=== PATIENT | female | born 1980 | race Caucasian/White ===

== ENCOUNTER 2020-11-07 21:17 | Inpatient (IN) | payer MEDICAID, OTHER ==
[~2020-11-07] VITALS: Ht 152.4 cm; Wt 93.5 kg
--- NOTE | 2020-11-07 21:44 | PHYS DOC ---
Past Medical History Past Medical History: No Pertinent History Past Surgical History: Other Additional Past Surgical Histo: (R) ANKLE REPAIR Smoking Status: Current Every Day Smoker Alcohol Use: None Drug Use: None Social History Narrative: "NOT NO MORE." General Adult EDM: Chief Complaint: HAND PROBLEM HPI: HPI: Patient is a 40 year old female who presents with 2 weeks ago tripped and went to catch herself and put her arm out in front of her and scraped up her right posterior hand at the ulnar side on the palm just below the fifth finger causing a quarter sized area of collection of purulent fluid under the skin with what looks like a puncture wound. Patient also has on the left hand large blistered- looking area to the ulnar aspect of the anterior hand below the fourth and fifth finger causing 1+ swelling to the whole hand with tingling to the fourth finger. This looks to be a large blistered area with purulent fluid collection under. There is also a darker pink color to the hand due to infection. Patient rates her pain a 10 out of 10. She states is hard for her to use her hands or bend her fingers due to the pain and swelling. Patient only history is smoking. Review of Systems: Review of Systems: Constitutional: Denies fever or chills. [] Eyes: Denies change in visual acuity. [] HENT: Denies nasal congestion or sore throat. [] Respiratory: Denies cough or shortness of breath. [] Cardiovascular: Denies chest pain or edema. [] GI: Denies abdominal pain, nausea, vomiting, bloody stools or diarrhea. [] : Denies dysuria. [] Musculoskeletal: Denies back pain or joint pain. + Bilateral hand pain [] Integument: Denies rash. +Bilateral hand infected wounds [] Neurologic: Denies headache, focal weakness or sensory changes. [] Endocrine: Denies polyuria or polydipsia. [] Lymphatic: Denies swollen glands. [] Psychiatric: Denies depression or anxiety. [] Heart Score: Risk Factors: Risk Factors: DM, Current or recent (<one month) smoker, HTN, HLP, family history of CAD, obesity. Risk Scores: Score 0 - 3: 2.5% MACE over next 6 weeks - Discharge Home Score 4 - 6: 20.3% MACE over next 6 weeks - Admit for Clinical Observation Score 7 - 10: 72.7% MACE over next 6 weeks - Early Invasive Strategies Allergies: Allergies: Allergies Coded Allergies Type Severity Reaction Last Updated Verified No Known Drug Allergies 03/19/15 No Physical Exam: PE: Constitutional: Well developed, well nourished, no acute distress, non-toxic appearance. [] HENT: Normocephalic, atraumatic, bilateral external ears normal, oropharynx mo ist, no oral exudates, nose normal. [] Eyes: PERRLA, EOMI, conjunctiva normal, no discharge. [] Neck: Normal range of motion, no tenderness, supple, no stridor. [] Cardiovascular:Heart rate regular rhythm, no murmur [] Lungs & Thorax: Bilateral breath sounds clear to auscultation [] Abdomen: Bowel sounds normal, soft, no tenderness, no masses, no pulsatile masses. [] Skin: Warm, dry, no erythema, no rash. Left hand darker pink in color with anterior ulnar side blister type wound that is large with purulent fluid underneath. Right hand palm at ulnar side large blisterlike area with purulent fluid buildup underneath. [] Back: No tenderness, no CVA tenderness. [] Extremities: Lateral hand tenderness, no cyanosis, no clubbing, ROM intact, left hand 1+ edema. [] Neurologic: Alert and oriented X 3, normal motor function, normal sensory function, no focal deficits noted. [] Psychologic: Affect normal, judgement normal, mood normal. [] Current Patient Data: Vital Signs: Vital Signs Date Time Temp Pulse Resp B/P (MAP) Pulse Ox O2 Delivery O2 Flow Rate FiO2 11/07/20 21:28 98.1 99 16 129/69 (89) 98 Room Air 98.1 EKG: EKG: [] Radiology/Procedures: Radiology/Procedures: [] Impression: [facility] [address] [place] [address] IMAGING REPORT Signed PATIENT: KELIN LINKCOUNT: [id number] : 1980 LOCATION: ER AGE: 40 SEX: F EXAM STATUS: REG ER ORD. PHYSICIAN: HEBER LUNDY APRN REASON: fall, infected wounds PROCEDURE: HAND BILAT 3V XR HAND 3 VIEWS DATE: 11/07/2020 9:58 PM INDICATION: Reason: fall, infected wounds / Spl. Instructions: / History: COMPARISON: None. FINDINGS: Right: There is no evidence of acute fracture or dislocation. No osseous erosi ons. The joint spaces are normal. Left: There is no evidence of acute fracture or dislocation. No osseous erosions. The joint spaces are normal. IMPRESSION: No acute fracture. No osseous erosions. Electronically signed by: Ajay Villegas MD (11/07/2020 10:17 PM) RUST DICTATED and SIGNED BY: AJAY VILLEGAS MD DATE: 11/07/20 [id number] 0 Course & Med Decision Making: Course & Med Decision Making Pertinent Labs and Imaging studies reviewed. (See chart for details) See HPI. Alert and oriented x4. Speaks in full complete sentences. Ambulatory to steady gait. Radial pulses strong present. Cap refill less than 2 seconds. Skin other well is pink warm and dry. Full range of motion of wrists bilaterally. No deformity or laxity to any joints or extremities. Patient denies fever, numbness, coolness of the extremities, skin color change. She states she has not been seen for this incident or her wounds. Patient states th at her tetanus is up-to-date and was less than 5 years ago. Blood work is unremarkable. Patient is in a lot of pain. I am more concerned about the left hand wound because of the swelling to the fourth and fifth finger and she does not have full range of motion of those fingers due to swelling and pain. She states there is some tingling and numbness starting in those fingers also. I cleaned that large left hand dorsal hand wound with beta hexedine. It is draining purulent fluid. Radial pulse strong present. Cap refill jose miguel less than 2 seconds. She will be started on vancomycin and Zosyn. I&D Location: Right palmar aspect the hand distal to the fifth finger Anesthesia: 1% lidocaine Scalpel size: 20g needle Skin: White with some pink around the area Drainage: Ear purulent fluid drainage Packing: None Patient tolerated the procedure well with no complications. The area was prepped and draped in usual sterile fashion. Area was cleaned with chloehexidine prior to procedure. Return for signs and symptoms of infection education given. Patient to return in 48 hours for wound recheck. [] Dragon Disclaimer: Dragon Disclaimer: This electronic medical record was generated, in whole or in part, using a voice recognition dictation system. Departure Departure Impression: Primary Impression: Wound infection Additional Impressions: Cocaine abuse Marijuana abuse Disposition: ADMITTED INPT THIS HOSP Admitting Physician: ALINA Condition: STABLE Referrals: EMRE HAMILTON MD (PCP) HEBER LUNDY REFERENCE ASSISTANT Nov 07, 2020 21:44
[2020-11-07] MEDS ORDERED: HYDROcodone/APAP 5/325MG 1 TAB TABLET PO ONE (21:45)
[2020-11-07] MEDS ORDERED: LIDOCAINE 1% Multi-Dose 20 ML VIAL. INJ ONE (21:45)
[2020-11-07 21:56] LABS: BASO # 0.1 x10^3/uL (0.0-0.2); BASO % 1 % (0-3); EOS # 0.2 x10^3/uL (0.0-0.7); EOS % 2 % (0-3); HEMATOCRIT 37.8 % (36.0-47.0); HEMOGLOBIN 12.2 g/dL (12.0-15.5); LYMPH # 2.3 x10^3/uL (1.0-4.8); LYMPH % 22 % (24-48); MEAN CORPUSCULAR HEMOGLOBIN 28 pg (25-35); MEAN CORPUSCULAR HGB CONC 32 g/dL (31-37); MEAN CORPUSCULAR VOLUME 87 fL (79-100); MONO # 0.5 x10^3/uL (0.0-1.1); MONO % 5 % (0-9); NEUT # 7.4 x10^3/uL (1.8-7.7); NEUT % 71 % (31-73); PLATELET COUNT 319 x10^3/uL (140-400); RED BLOOD COUNT 4.34 x10^6/uL (3.50-5.40); WHITE BLOOD COUNT 10.5 x10^3/uL (4.0-11.0)
[2020-11-07 22:16] LABS: ALBUMIN 2.7 g/dL (3.4-5.0); ALBUMIN/GLOBULIN RATIO 0.5 (1.0-1.7); CREATININE 0.7 mg/dL (0.6-1.0); GFR 91.8; TOTAL BILIRUBIN 0.1 mg/dL (0.2-1.0); TOTAL PROTEIN 7.8 g/dL (6.4-8.2)
--- NOTE | 2020-11-07 22:28 | RAD ---
XR HAND 3 VIEWS DATE: 11/07/2020 9:58 PM INDICATION: Reason: fall, infected wounds / Spl. Instructions: / History: COMPARISON: None. FINDINGS: Right: There is no evidence of acute fracture or dislocation. No osseous erosions. The joint spaces a re normal. Left: There is no evidence of acute fracture or dislocation. No osseous erosions. The joint spaces ar e normal. IMPRESSION: No acute fracture. No osseous erosions. Electronically signed by: Jean Paul Villegas MD (11/07/2020 10:17 PM) JOHN
[2020-11-07 23:36] LABS: AMPHETAMINE/METHAMPHETAMINE NEG (NEG); BARBITURATES NEG (NEG); BENZODIAZEPINES NEG (NEG); CANNABINOIDS POS (NEG); COCAINE POS (NEG); METHADONE NEG (NEG); OPIATES NEG (NEG); PHENCYCLIDINE NEG (NEG)
[2020-11-07] MEDS ORDERED: SULF1TAB24 PO (23:40)
[2020-11-07] MEDS ORDERED: MUPI22OI2 TP (23:41)
[2020-11-08] MEDS ORDERED: IV NORMAL SALINE 1000ML BAG 1,000 ML IV ONE (00:15)
[2020-11-08] MEDS ORDERED: ONDANSETRON PF 4 MG/2 ML VIAL. IV PRN (00:15)
[2020-11-08] MEDS ORDERED: PIPERACILLIN/TAZOBACTAM 3.375 GM in IV NORMAL SALINE 50ML 50 ML IV ONE (00:15)
[2020-11-08] MEDS ORDERED: fentaNYL PF VIAL 100 MCG/2 ML VIAL IV PRN (00:15)
[2020-11-08] MEDS ORDERED: VANCOMYCIN PER PHARMACY MC PRN (00:15)
[2020-11-08] MEDS ORDERED: VANCOMYCIN 2 GM in IV NORMAL SALINE 500ML BAG 500 ML IV ONE (00:30)
[2020-11-08 02:00] VITALS: BP 128/80
--- NOTE | 2020-11-08 02:11 | NUR ---
Pharmacy Vancomycin Dosing Note S:Consulted to monitor and dose vancomycin started 11/08/20. O:KELIN LINK is a 40 year old F with WOUND INFECTION . Height: 5 feet, 0 inches Weight: 86.0 kg [place] Body Weight: 45.50 Adjusted Body Weight: 61.70 Dosing Weight: Actual Other Antibiotics: ZOSYN 3.375GM IV X1 IN ER (11/08) LABS: Last BUN: 8 Last Creatinine: 0.7 Creatinine Clearance: 101 mL/min Last WBC: 10.5 Last Procalcitonin: Tmax (past 24 hours): Microbiology: I/O: Drug Levels: Last level: on at Last dose given at Vancomycin Dosing: Loading Dose: 2000 mg x1 11/08/20 0140 Dosing Weight: Actual Target Trough: 10-20 A: Based on: Actual Wt and CrCl P: 1. 11/08/20 0930 Vancomycin 1250 mg IV q8h 2. Follow up Trough level on 11/09/20 at 0100 3. Pharmacy will continue to monitor, follow and adjust therapy as needed. PAYTON CRANE RPH, 11/08/20210 Signed: 11/08/20 at 0213 by PAYTON CRANE RPH PHA
[2020-11-08 07:25] VITALS: BP 131/70
--- NOTE | 2020-11-08 07:59 | PDOC ---
Infectious Disease Note Vital Sign Vital Signs Vital Signs Date Time Temp Pulse Resp B/P (MAP) Pulse Ox O2 Delivery O2 Flow Rate FiO2 11/08/20 07:25 98.4 78 18 131/70 (90) 98 Room Air 98.4 Labs Lab Laboratory Tests Test 11/07/20 21:46 11/07/20 23:23 White Blood Count 10.5 x10^3/uL (4.0-11.0) Red Blood Count 4.34 x10^6/uL (3.50-5.40) Hemoglobin 12.2 g/dL (12.0-15.5) Hematocrit 37.8 % (36.0-47.0) Mean Corpuscular Volume 87 fL (79-100) Mean Corpuscular Hemoglobin 28 pg (25-35) Mean Corpuscular Hemoglobin Concent 32 g/dL (31-37) Red Cell Distribution Width 16.0 % (11.5-14.5) Platelet Count 319 x10^3/uL (140-400) Neutrophils (%) (Auto) 71 % (31-73) Lymphocytes (%) (Auto) 22 % (24-48) Monocytes (%) (Auto) 5 % (0-9) Eosinophils (%) (Auto) 2 % (0-3) Basophils (%) (Auto) 1 % (0-3) Neutrophils # (Auto) 7.4 x10^3/uL (1.8-7.7) Lymphocytes # (Auto) 2.3 x10^3/uL (1.0-4.8) Monocytes # (Auto) 0.5 x10^3/uL (0.0-1.1) Eosinophils # (Auto) 0.2 x10^3/uL (0.0-0.7) Basophils # (Auto) 0.1 x10^3/uL (0.0-0.2) Sodium Level 133 mmol/L (136-145) Potassium Level 4.0 mmol/L (3.5-5.1) Chloride Level 103 mmol/L (98-107) Carbon Dioxide Level 22 mmol/L (21-32) Anion Gap 8 (6-14) Blood Urea Nitrogen 8 mg/dL (7-20) Creatinine 0.7 mg/dL (0.6-1.0) Estimated GFR (Cockcroft-Gault) 91.8 BUN/Creatinine Ratio 11 (6-20) Glucose Level 122 mg/dL (70-99) Calcium Level 9.0 mg/dL (8.5-10.1) Total Bilirubin 0.1 mg/dL (0.2-1.0) Aspartate Amino Transf (AST/SGOT) 14 U/L (15-37) Alanine Aminotransferase (ALT/SGPT) 24 U/L (14-59) Alkaline Phosphatase 66 U/L (46-116) Total Protein 7.8 g/dL (6.4-8.2) Albumin 2.7 g/dL (3.4-5.0) Albumin/Globulin Ratio 0.5 (1.0-1.7) Urine Opiates Screen Neg (NEG) Urine Methadone Screen Neg (NEG) Urine Barbiturates Neg (NEG) Urine Phencyclidine Screen Neg (NEG) Urine Amphetamine/Methamphetamine Neg (NEG) Urine Benzodiazepines Screen Neg (NEG) Urine Cocaine Screen Pos (NEG) Urine Cannabinoids Screen Pos (NEG) Urine Ethyl Alcohol Neg (NEG) Objective Assessment Bilat hand wounds - states tetanus shot 3 years ago Lumbar scabbed area Substance abuse Tobacco abuse Obesity Plan Plan of Care Cont zosyn D/c Vanc Add po Zyvox Await Ortho eval Monitor progress - if worsens consider antifungal F/u labs and cults local wound care D/w nursing Thank you # [id number] TARA SHERMAN MD Nov 08, 2020 07:59
[2020-11-08] MEDS: LINEZOLID 600 MG TABLET PO SCH ×2 (08:10→20:49)
--- NOTE | 2020-11-08 08:23 | CONS ---
DATE OF CONSULTATION: 11/08/2020 LOCATION: The patient is in room 412. REQUESTING PHYSICIAN: Brandon Pena MD REASON FOR CONSULTATION: Hand wound. HISTORY OF PRESENT ILLNESS: The patient is a 40-year-old female with history of previous right ankle repair, states that she has difficulty getting around as she states she has some crippled on her right side. About 2 weeks ago, she states she lost her balance, fell down on some outstretched hands, injuring the left fifth dorsal aspect of her hand and also the right fifth plantar aspect of her hand. She said initially she had some blood blisters there. She had pain and over the next 2 weeks they have not gotten any better and she is having some increasing pain. She has been taking ibuprofen and Tylenol intermittently. She denied any fever, chills or sweats and she has not taken any antibiotics. No headaches, no sore throat, no cough. No dysuria, frequency, urgency and denies any diarrhea. PAST SURGICAL HISTORY: Positive for previous ankle pain and repair. REVIEW OF SYSTEMS: Otherwise negative except for what is mentioned above. ALLERGIES: LISTED TUBERCULIN PPD. SOCIAL HISTORY: She is a smoker. Also has dogs. FAMILY HISTORY: Noncontributory. CURRENT MEDICATIONS: Include a dose of Zosyn, IV vancomycin, fentanyl, hydrocodone, Zofran. PHYSICAL EXAMINATION: VITAL SIGNS: She is afebrile. Temperature 98.4, pulse 78, respirations 18, blood pressure 131/70, satting 98% on room air. CONSTITUTIONAL: She is lying in bed. She is cooperative. She is in no acute distress. HEENT: Pupils equal and reactive. Oral cavity, she has dentures. NECK: Supple. Good range of motion. LUNGS: Clear to auscultation bilaterally. HEART: S1, S2. ABDOMEN: Obese, soft, nontender, nondistended with positive bowel sounds. SKIN: Warm to touch without generalized signs of rash. In her lower lumbosacral area, she has multiple scabbed areas. No signs of any infection. No blisters or bullae. On her left hand on the dorsal aspect and the medial aspect, she has some drying blistered area and on the dorsal aspect of her fifth finger, she has dried blood, blister type on the right palm on the palmar side of the fifth finger. She has a callus-like lesion that had some blister-like material underneath it. NEUROLOGIC: She is nonfocal. Moves all extremities. Answered questions appropriately. Affect was appropriate. LABORATORY VALUES: White count 10.5, hemoglobin 12.2, platelets 319, neutrophils 71. There is no sed rate. Creatinine is 0.7, glucose 122. Drug screen was positive for cocaine and marijuana. X-ray of her bilateral hands; no evidence of any fractures or erosions. IMPRESSION: 1. Bilateral hand wounds. States her tetanus shot was 3 years ago. 2. Lumbar scabbed area. 3. Substance abuse, positive COVID and cannabinoids. 4. Tobacco abuse. 5. Obesity. RECOMMENDATIONS: We will continue the Zosyn as she fell down on the outside area on concrete. Discontinue the vancomycin, given high dose. She does not look septic and likely have positive blood cultures, but we will start Zyvox. Await orthopedic evaluation. Monitor her progress. If she worsens, consider antifungal. We will follow up labs and cultures. Continue local wound care. Thank you for allowing me to participate in the patient's care. If you have any questions, please do not hesitate to contact me. TARA SHERMAN MD DR: KRISTINA/issac JOB#: [id number] / [id number] COSMO
[2020-11-08] MEDS ORDERED: VANCOMYCIN 1.25 GM in IV NORMAL SALINE 250ML 250 ML IV SCH (09:30)
[2020-11-08 10:36] VITALS: BP 129/67
[2020-11-08] MEDS: PIPERACILLIN/TAZOBACTAM 3.375 GM in IV NORMAL SALINE 50ML 50 ML IV SCH ×2 (12:14→17:56)
[2020-11-08 14:32] VITALS: BP 120/83
--- NOTE | 2020-11-08 16:26 | PDOC2 ---
CONSULT Date of Consult Date of Consult DATE: 11/08/20 TIME: 16:25 Reason for Consult Reason for Consult: Bilateral hand wounds Identification/Chief Complaint Chief Complaint Bilateral hand wounds Source Source: Chart review, Patient History of Present Illness Reason for Visit: 40-year-old left-handed woman with hand problems for about 2 weeks. 2 weeks ago tripped and went to catch herself and put her arm out in front of her and scraped up her right posterior hand at the ulnar side on the palm just below the fifth finger causing a quarter sized area of collection of purulent fluid under the skin with what looks like a puncture wound. Patient also has on the left hand large blistered-looking area to the ulnar aspect of the anterior hand below the fourth and fifth finger causing 1+ swelling to the whole hand with tingling to the fourth finger. This looks to be a large blistered area with purulent fluid collection under. There is also a darker pink color to the hand due to infection. Patient rates her pain a 10 out of 10. She states is hard for her to use her hands or bend her fingers due to the pain and swelling. Patient only history is smoking. Past Surgical History Past Surgical History: Tubal Ligation Family History Family History: Cancer Social History 1 pack per day ALCOHOL: social Drugs: Cocaine, Marijuana Current Problem List Problem List Problems Medical Problems: (1) Cocaine abuse Status: Acute (2) Marijuana abuse Status: Acute (3) Wound infection Status: Acute Current Medications Current Medications Current Medications Lidocaine HCl (Lidocaine 1% 20ml Vial) 20 ml 1X ONCE INJ Last administered on 11/07/20at 23:49; Start 11/07/20 at 21:45; Stop 11/07/20 at 21:46; Status DC Acetaminophen/ Hydrocodone Bitart (Lortab 5/325) 1 tab 1X ONCE PO Last administered on 11/07/20at 21:47; Start 11/07/20 at 21:45; Stop 11/07/20 at 21:46; Status DC Ondansetron HCl (Zofran) 4 mg PRN Q8HRS PRN IV NAUSEA/VOMITING; Start 11/08/20 at 00:15; Stop 11/09/20 at 00:14 Fentanyl Citrate (Fentanyl 2ml Vial) 50 mcg PRN Q2HR PRN IV PAIN Last administered on 11/08/20at 08:10; Start 11/08/20 at 00:15; Stop 11/09/20 at 00:14 Vancomycin HCl (Vanco Per Pharmacy) 1 each PRN DAILY PRN MC SEE COMMENTS Last administered on 11/08/20at 02:10; Start 11/08/20 at 00:15; Stop 11/08/20 at 08:00; Status DC Piperacillin Sod/ Tazobactam Sod 3.375 gm/Sodium Chloride 50 ml @ 100 mls/hr 1X ONCE IV Last administered on 11/08/20at 00:15; Start 11/08/20 at 00:15; Stop 11/08/20 at 00:44; Status DC Sodium Chloride 1,000 ml @ 1,000 mls/hr 1X ONCE IV Last administered on 11/08/20at 00:37; Start 11/08/20 at 00:15; Stop 11/08/20 at 01:14; Status DC Vancomycin HCl 2 gm/Sodium Chloride 500 ml @ 250 mls/hr 1X ONCE IV Last administered on 11/08/20at 02:30; Start 11/08/20 at 00:30; Stop 11/08/20 at 02:29; Status DC Vancomycin HCl 1.25 gm/Sodium Chloride 250 ml @ 167 mls/hr Q8H IV ; Start 11/08/20 at 09:30; Stop 11/08/20 at 08:00; Status DC Vancomycin HCl (Vancomycin Trough Level) 1 each 1X ONCE MC ; Start 11/09/20 at 01:00; Stop 11/09/20 at 01:01; Status Cancel Linezolid (Zyvox) 600 mg BID PO Last administered on 11/08/20at 08:10; Start 11/08/20 at 09:00 Piperacillin Sod/ Tazobactam Sod 3.375 gm/Sodium Chloride 50 ml @ 100 mls/hr Q6HRS IV Last administered on 11/08/20at 12:14; Start 11/08/20 at 12:00 Lactobacillus Rhamnosus (Culturelle) 1 cap BID PO ; Start 11/08/20 at 21:00 Active Scripts Active Allergies Allergies: Coded Allergies: tuberculin, purified protein deriva (Verified Allergy, Intermediate, 11/08/20) ROS Review of System Constitutional: Denies fever or chills. Eyes: Denies change in visual acuity. HENT: Denies nasal congestion or sore throat. Respiratory: Denies cough or shortness of breath. Cardiovascular: Denies chest pain or edema. GI: Denies abdominal pain, nausea, vomiting, bloody stools or diarrhea. : Denies dysuria. Musculoskeletal: Denies back pain or joint pain. + Bilateral hand pain Integument: Denies rash. +Bilateral hand infected wounds Neurologic: Denies headache, focal weakness or sensory changes. Endocrine: Denies polyuria or polydipsia. Lymphatic: Denies swollen glands. Psychiatric: Denies depression or anxiety. Physical Exam General: Alert, Cooperative HEENT: Atraumatic Lungs: Normal air movement Heart: Regular rate Abdomen: Soft Extremities: Other (The left hand has a large area of dorsal hand abrasion and superficial eschar. There is a resolving area of blisters/bullae, with some underlying fluid, but no active infection. This likely would respond with limited debridement at the bedside by wound care and superficial skin care only. There does not seem to be any deep tendon bone joint or tissue involvement. On the right hand there is a callus and more of a punctate type lesion at the palmar aspect of the small finger metacarpophalangeal joint. There is no apparent septic joint or joint involvement. There is no flexor tenosynovitis. This appears to be superficial, somewhat dark in color and looks like it is already spontaneously drained. I do not palpate any focal abscess or fluid cavi ty to incise.) Vitals VITALS Vital Signs Date Time Temp Pulse Resp B/P (MAP) Pulse Ox O2 Delivery O2 Flow Rate FiO2 11/08/20 14:32 98.0 78 18 120/83 (95) 97 Room Air 98.0 Labs Labs Laboratory Tests Test 11/07/20 21:46 11/07/20 23:23 11/08/20 14:01 White Blood Count 10.5 x10^3/uL (4.0-11.0) Red Blood Count 4.34 x10^6/uL (3.50-5.40) Hemoglobin 12.2 g/dL (12.0-15.5) Hematocrit 37.8 % (36.0-47.0) Mean Corpuscular Volume 87 fL (79-100) Mean Corpuscular Hemoglobin 28 pg (25-35) Mean Corpuscular Hemoglobin Concent 32 g/dL (31-37) Red Cell Distribution Width 16.0 % (11.5-14.5) Platelet Count 319 x10^3/uL (140-400) Neutrophils (%) (Auto) 71 % (31-73) Lymphocytes (%) (Auto) 22 % (24-48) Monocytes (%) (Auto) 5 % (0-9) Eosinophils (%) (Auto) 2 % (0-3) Basophils (%) (Auto) 1 % (0-3) Neutrophils # (Auto) 7.4 x10^3/uL (1.8-7.7) Lymphocytes # (Auto) 2.3 x10^3/uL (1.0-4.8) Monocytes # (Auto) 0.5 x10^3/uL (0.0-1.1) Eosinophils # (Auto) 0.2 x10^3/uL (0.0-0.7) Basophils # (Auto) 0.1 x10^3/uL (0.0-0.2) Sodium Level 133 mmol/L (136-145) Potassium Level 4.0 mmol/L (3.5-5.1) Chloride Level 103 mmol/L (98-107) Carbon Dioxide Level 22 mmol/L (21-32) Anion Gap 8 (6-14) Blood Urea Nitrogen 8 mg/dL (7-20) Creatinine 0.7 mg/dL (0.6-1.0) Estimated GFR (Cockcroft-Gault) 91.8 BUN/Creatinine Ratio 11 (6-20) Glucose Level 122 mg/dL (70-99) Calcium Level 9.0 mg/dL (8.5-10.1) Total Bilirubin 0.1 mg/dL (0.2-1.0) Aspartate Amino Transf (AST/SGOT) 14 U/L (15-37) Alanine Aminotransferase (ALT/SGPT) 24 U/L (14-59) Alkaline Phosphatase 66 U/L (46-116) Total Protein 7.8 g/dL (6.4-8.2) Albumin 2.7 g/dL (3.4-5.0) Albumin/Globulin Ratio 0.5 (1.0-1.7) Urine Opiates Screen Neg (NEG) Urine Methadone Screen Neg (NEG) Urine Barbiturates Neg (NEG) Urine Phencyclidine Screen Neg (NEG) Urine Amphetamine/Methamphetamine Neg (NEG) Urine Benzodiazepines Screen Neg (NEG) Urine Cocaine Screen Pos (NEG) Urine Cannabinoids Screen Pos (NEG) Urine Ethyl Alcohol Neg (NEG) Lactic Acid Level 1.1 mmol/L (0.4-2.0) Laboratory Tests Test 11/07/20 21:46 11/07/20 23:23 11/08/20 14:01 White Blood Count 10.5 x10^3/uL (4.0-11.0) Red Blood Count 4.34 x10^6/uL (3.50-5.40) Hemoglobin 12.2 g/dL (12.0-15.5) Hematocrit 37.8 % (36.0-47.0) Mean Corpuscular Volume 87 fL (79-100) Mean Corpuscular Hemoglobin 28 pg (25-35) Mean Corpuscular Hemoglobin Concent 32 g/dL (31-37) Red Cell Distribution Width 16.0 % (11.5-14.5) Platelet Count 319 x10^3/uL (140-400) Neutrophils (%) (Auto) 71 % (31-73) Lymphocytes (%) (Auto) 22 % (24-48) Monocytes (%) (Auto) 5 % (0-9) Eosinophils (%) (Auto) 2 % (0-3) Basophils (%) (Auto) 1 % (0-3) Neutrophils # (Auto) 7.4 x10^3/uL (1.8-7.7) Lymphocytes # (Auto) 2.3 x10^3/uL (1.0-4.8) Monocytes # (Auto) 0.5 x10^3/uL (0.0-1.1) Eosinophils # (Auto) 0.2 x10^3/uL (0.0-0.7) Basophils # (Auto) 0.1 x10^3/uL (0.0-0.2) Sodium Level 133 mmol/L (136-145) Potassium Level 4.0 mmol/L (3.5-5.1) Chloride Level 103 mmol/L (98-107) Carbon Dioxide Level 22 mmol/L (21-32) Anion Gap 8 (6-14) Blood Urea Nitrogen 8 mg/dL (7-20) Creatinine 0.7 mg/dL (0.6-1.0) Estimated GFR (Cockcroft-Gault) 91.8 BUN/Creatinine Ratio 11 (6-20) Glucose Level 122 mg/dL (70-99) Calcium Level 9.0 mg/dL (8.5-10.1) Total Bilirubin 0.1 mg/dL (0.2-1.0) Aspartate Amino Transf (AST/SGOT) 14 U/L (15-37) Alanine Aminotransferase (ALT/SGPT) 24 U/L (14-59) Alkaline Phosphatase 66 U/L (46-116) Total Protein 7.8 g/dL (6.4-8.2) Albumin 2.7 g/dL (3.4-5.0) Albumin/Globulin Ratio 0.5 (1.0-1.7) Urine Opiates Screen Neg (NEG) Urine Methadone Screen Neg (NEG) Urine Barbiturates Neg (NEG) Urine Phencyclidine Screen Neg (NEG) Urine Amphetamine/Methamphetamine Neg (NEG) Urine Benzodiazepines Screen Neg (NEG) Urine Cocaine Screen Pos (NEG) Urine Cannabinoids Screen Pos (NEG) Urine Ethyl Alcohol Neg (NEG) Lactic Acid Level 1.1 mmol/L (0.4-2.0) Images Images Report reviewed, images independently reviewed. [facility] [address] [place], [place] [id number] IMAGING REPORT Signed PATIENT: KELIN LINK ACCOUNT: [id number] : 1980 LOCATION: ER AGE: 40 SEX: F EXAM STATUS: REG ER ORD. PHYSICIAN: HEBER LUNDY APRN REASON: fall, infected wounds PROCEDURE: HAND BILAT 3V XR HAND 3 VIEWS DATE: 11/07/2020 9:58 PM INDICATION: Reason: fall, infected wounds / Spl. Instructions: / History: COMPARISON: None. FINDINGS: Right: There is no evidence of acute fracture or dislocation. No osseous erosions. The joint spaces are normal. Left: There is no evidence of acute fracture or dislocation. No osseous erosions. The joint spaces are normal. IMPRESSION: No acute fracture. No osseous erosions. Electronically signed by: Ajay Villegas MD (11/07/2020 10:17 PM) [facility] DICTATED and SIGNED BY: AJAY VILLEGAS MD DATE: 11/07/20 0861 Assessment/Plan Assessment/Plan I do not recommend any surgical treatment. There is no flexor tenosynovitis, no deep abscess, and no septic joint. Wound care and antibiotics would be appropriate on the left hand with limited debridement at the bedside by wound care. On the right hand some superficial wound care, and also continue antibiotics. ALEX TARANGO MD Nov 08, 2020 16:26
[2020-11-08] MEDS ORDERED: oxyCODONE/APAP 5/325 1 TAB TABLET PO PRN (16:45)
--- NOTE | 2020-11-08 18:35 | PDOC1 ---
History and Physical Date of Admission Date of Admission November 08, 2020 Identification/Chief Complaint Chief Complaint My hand hurts Source Source: Chart review, Patient History of Present Illness History of Present Illness Patient is a 40-year-old female with no significant past medical history who is currently an every day smoker. She was in her usual state of health until approximately 2 weeks ago when apparently she fell on outstretched hand fortunately now she has no deformities but nevertheless she is scuffed her right palm and also she has a infected looking palmar lesion on her left hand as well. This apparently has gotten blisters for the last couple weeks. This happened approximately 14 days prior to her visit to our emergency department. Of note is that the patient's urine drug panel was positive for marijuana and cocaine. Patient adamantly denies using drugs on a regular basis and she tells me that a friend offered her a puff of a joint that she did in order to get some relief since she was in quite a bit of pain due to her lesions. She has been admitted to our service for further evaluation and treatment. At the time of my visit the patient was laying in bed sleeping comfortably nevertheless when I woke her up she seemed to be in acute distress nevertheless shortly after the conclusion of my assessment patient went right back to sleep. Plan of care has been explained in detail and all of her concerns were addressed to the best of my abilities Past Medical History Past Medical History No past medical history Past Surgical History Past Surgical History: Tubal Ligation Family History Family History: Cancer Social History Smoke: # pack years (10) ALCOHOL: none Drugs: Cocaine, Marijuana Current Problem List Problem List Problems Medical Problems: (1) Cocaine abuse Status: Acute (2) Marijuana abuse Status: Acute (3) Wound infection Status: Acute Current Medications Current Medications Current Medications Medications (Trade) Dose Ordered Sig/Guerline Start Time Stop Time Status Last Admin Dose Admin Acetaminophen/ Hydrocodone Bitart (Lortab 5/325) 1 tab 1X ONCE 11/07/20 21:45 11/07/20 21:46 DC 11/07/20 21:47 1 TAB Fentanyl Citrate (Fentanyl 2ml Vial) 50 mcg PRN Q2HR PRN 11/08/20 00:15 11/09/20 00:14 11/08/20 08:10 50 MCG Lactobacillus Rhamnosus (Culturelle) 1 cap BID 11/08/20 21:00 Lidocaine HCl (Lidocaine 1% 20ml Vial) 20 ml 1X ONCE 11/07/20 21:45 11/07/20 21:46 DC 11/07/20 23:49 20 ML Linezolid (Zyvox) 600 mg BID 11/08/20 09:00 11/08/20 08:10 600 MG Ondansetron HCl (Zofran) 4 mg PRN Q8HRS PRN 11/08/20 00:15 11/09/20 00:14 Oxycodone/ Acetaminophen (Percocet 5/325) 2 tab PRN Q4HRS PRN 11/08/20 16:45 Piperacillin Sod/ Tazobactam Sod 3.375 gm/Sodium Chloride 50 ml @ 100 mls/hr Q6HRS 11/08/20 12:00 11/08/20 17:56 100 MLS/HR Sodium Chloride 1,000 ml @ 1,000 mls/hr 1X ONCE 11/08/20 00:15 11/08/20 01:14 DC 11/08/20 00:37 1,000 MLS/HR Vancomycin HCl (Vanco Per Pharmacy) 1 each PRN DAILY PRN 11/08/20 00:15 11/08/20 08:00 DC 11/08/20 02:10 1 EACH Vancomycin HCl (Vancomycin Trough Level) 1 each 1X ONCE 11/09/20 01:00 11/09/20 01:01 Cancel Vancomycin HCl 1.25 gm/Sodium Chloride 250 ml @ 167 mls/hr Q8H 11/08/20 09:30 11/08/20 08:00 DC Vancomycin HCl 2 gm/Sodium Chloride 500 ml @ 250 mls/hr 1X ONCE 11/08/20 00:30 11/08/20 02:29 DC 11/08/20 02:30 250 MLS/HR Allergies Allergies Allergies Coded Allergies Type Severity Reaction Last Updated Verified tuberculin, purified protein deriva Allergy Intermediate 11/08/20 Yes ROS Review of System CONSTITUTIONAL: No fever or chills EYES: No recent changes SKIN: No rash or itching CARDIOVASCULAR: No chest pain, syncope, palpitations, or edema RESPIRATORY: No SOB or cough GASTROINTESTINAL: No nausea, vomiting or abdominal pain NEUROLOGICAL: No headaches or weakness ENDOCRINE: No cold or heat intolerance GENITOURINARY: No urgency or frequency of urination MUSCULOSKELETAL: No back pain or joint pain LYMPHATICS: No enlarged lymph nodes PSYCHIATRIC: No anxiety or depression Physical Exam Physical Exam GEN.: No apparent distress. Alert and oriented. HEENT: Head is normocephalic, atraumatic NECK: Supple. LUNGS: Clear to auscultation. HEART: RRR, S1, S2 present. Peripheral pulses intact ABDOMEN: Soft, nontender. Positive bowel sounds. EXTREMITIES: Without any cyanosis. NEUROLOGIC: Normal speech, normal tone PSYCHIATRIC: Normal affect, normal mood. SKIN: No ulcerations Vitals Vitals Vital Signs Date Time Temp Pulse Resp B/P (MAP) Pulse Ox O2 Delivery O2 Flow Rate FiO2 11/08/20 14:32 98.0 78 18 120/83 (95) 97 Room Air 98.0 Labs Labs Laboratory Tests Test 11/07/20 21:46 11/07/20 23:23 11/08/20 14:01 White Blood Count 10.5 x10^3/uL (4.0-11.0) Red Blood Count 4.34 x10^6/uL (3.50-5.40) Hemoglobin 12.2 g/dL (12.0-15.5) Hematocrit 37.8 % (36.0-47.0) Mean Corpuscular Volume 87 fL (79-100) Mean Corpuscular Hemoglobin 28 pg (25-35) Mean Corpuscular Hemoglobin Concent 32 g/dL (31-37) Red Cell Distribution Width 16.0 % (11.5-14.5) Platelet Count 319 x10^3/uL (140-400) Neutrophils (%) (Auto) 71 % (31-73) Lymphocytes (%) (Auto) 22 % (24-48) Monocytes (%) (Auto) 5 % (0-9) Eosinophils (%) (Auto) 2 % (0-3) Basophils (%) (Auto) 1 % (0-3) Neutrophils # (Auto) 7.4 x10^3/uL (1.8-7.7) Lymphocytes # (Auto) 2.3 x10^3/uL (1.0-4.8) Monocytes # (Auto) 0.5 x10^3/uL (0.0-1.1) Eosinophils # (Auto) 0.2 x10^3/uL (0.0-0.7) Basophils # (Auto) 0.1 x10^3/uL (0.0-0.2) Sodium Level 133 mmol/L (136-145) Potassium Level 4.0 mmol/L (3.5-5.1) Chloride Level 103 mmol/L (98-107) Carbon Dioxide Level 22 mmol/L (21-32) Anion Gap 8 (6-14) Blood Urea Nitrogen 8 mg/dL (7-20) Creatinine 0.7 mg/dL (0.6-1.0) Estimated GFR (Cockcroft-Gault) 91.8 BUN/Creatinine Ratio 11 (6-20) Glucose Level 122 mg/dL (70-99) Calcium Level 9.0 mg/dL (8.5-10.1) Total Bilirubin 0.1 mg/dL (0.2-1.0) Aspartate Amino Transf (AST/SGOT) 14 U/L (15-37) Alanine Aminotransferase (ALT/SGPT) 24 U/L (14-59) Alkaline Phosphatase 66 U/L (46-116) Total Protein 7.8 g/dL (6.4-8.2) Albumin 2.7 g/dL (3.4-5.0) Albumin/Globulin Ratio 0.5 (1.0-1.7) Urine Opiates Screen Neg (NEG) Urine Methadone Screen Neg (NEG) Urine Barbiturates Neg (NEG) Urine Phencyclidine Screen Neg (NEG) Urine Amphetamine/Methamphetamine Neg (NEG) Urine Benzodiazepines Screen Neg (NEG) Urine Cocaine Screen Pos (NEG) Urine Cannabinoids Screen Pos (NEG) Urine Ethyl Alcohol Neg (NEG) Lactic Acid Level 1.1 mmol/L (0.4-2.0) Laboratory Tests Test 11/07/20 21:46 11/07/20 23:23 11/08/20 14:01 White Blood Count 10.5 x10^3/uL (4.0-11.0) Red Blood Count 4.34 x10^6/uL (3.50-5.40) Hemoglobin 12.2 g/dL (12.0-15.5) Hematocrit 37.8 % (36.0-47.0) Mean Corpuscular Volume 87 fL (79-100) Mean Corpuscular Hemoglobin 28 pg (25-35) Mean Corpuscular Hemoglobin Concent 32 g/dL (31-37) Red Cell Distribution Width 16.0 % (11.5-14.5) Platelet Count 319 x10^3/uL (140-400) Neutrophils (%) (Auto) 71 % (31-73) Lymphocytes (%) (Auto) 22 % (24-48) Monocytes (%) (Auto) 5 % (0-9) Eosinophils (%) (Auto) 2 % (0-3) Basophils (%) (Auto) 1 % (0-3) Neutrophils # (Auto) 7.4 x10^3/uL (1.8-7.7) Lymphocytes # (Auto) 2.3 x10^3/uL (1.0-4.8) Monocytes # (Auto) 0.5 x10^3/uL (0.0-1.1) Eosinophils # (Auto) 0.2 x10^3/uL (0.0-0.7) Basophils # (Auto) 0.1 x10^3/uL (0.0-0.2) Sodium Level 133 mmol/L (136-145) Potassium Level 4.0 mmol/L (3.5-5.1) Chloride Level 103 mmol/L (98-107) Carbon Dioxide Level 22 mmol/L (21-32) Anion Gap 8 (6-14) Blood Urea Nitrogen 8 mg/dL (7-20) Creatinine 0.7 mg/dL (0.6-1.0) Estimated GFR (Cockcroft-Gault) 91.8 BUN/Creatinine Ratio 11 (6-20) Glucose Level 122 mg/dL (70-99) Calcium Level 9.0 mg/dL (8.5-10.1) Total Bilirubin 0.1 mg/dL (0.2-1.0) Aspartate Amino Transf (AST/SGOT) 14 U/L (15-37) Alanine Aminotransferase (ALT/SGPT) 24 U/L (14-59) Alkaline Phosphatase 66 U/L (46-116) Total Protein 7.8 g/dL (6.4-8.2) Albumin 2.7 g/dL (3.4-5.0) Albumin/Globulin Ratio 0.5 (1.0-1.7) Urine Opiates Screen Neg (NEG) Urine Methadone Screen Neg (NEG) Urine Barbiturates Neg (NEG) Urine Phencyclidine Screen Neg (NEG) Urine Amphetamine/Methamphetamine Neg (NEG) Urine Benzodiazepines Screen Neg (NEG) Urine Cocaine Screen Pos (NEG) Urine Cannabinoids Screen Pos (NEG) Urine Ethyl Alcohol Neg (NEG) Lactic Acid Level 1.1 mmol/L (0.4-2.0) Images Images [facility] [address] [place] [address] IMAGING REPORT Signed PATIENT: KELIN LINK ACCOUNT: [id number] : 1980 LOCATION: ER AGE: 40 SEX: F EXAM STATUS: REG ER ORD. PHYSICIAN: HEBER LUNDY APRN REASON: fall, infected wounds PROCEDURE: HAND BILAT 3V XR HAND 3 VIEWS DATE: 11/07/2020 9:58 PM INDICATION: Reason: fall, infected wounds / Spl. Instructions: / History: COMPARISON: None. FINDINGS: Right: There is no evidence of acute fracture or dislocation. No osseous erosions. The joint spaces are normal. Left: There is no evidence of acute fracture or dislocation. No osseous erosi ons. The joint spaces are normal. IMPRESSION: No acute fracture. No osseous erosions. Electronically signed by: Ajay Villegas MD (11/07/2020 10:17 PM) [facility] DICTATED and SIGNED BY: AJAY VILLEGAS MD DATE: 11/07/20 2215 VTE Prophylaxis Ordered VTE Prophylaxis Devices: No VTE Pharmacological Prophylaxi: Yes Assessment/Plan Assessment/Plan Bilateral hand wounds History of tobacco abuse Positive urine drug panel for marijuana and cocaine . Plan Follow recommendations from infectious disease and orthopedic surgery ER physician was concerned about decreased range of motion due to edema nevertheless our search consultant does not feel that surgical intervention would be necessary at this point. We will transition hopefully to oral antibiotics in the a.m. Pain management Hopefully discharge next 24 to 48 hours DVT prophylaxis with Lovenox Justifications for Admission Other Justification CARMEN HONEYCUTT MD Nov 08, 2020 18:35
[2020-11-08 19:00] VITALS: BP 124/72
[2020-11-08] MEDS: LACTOBACILLUS RHAMNOSUS GG 1 CAPSULE. PO SCH (20:49)
[2020-11-08] MEDS: oxyCODONE/APAP 5/325 1 TAB TABLET PO PRN (21:36)
[2020-11-09] MEDS: PIPERACILLIN/TAZOBACTAM 3.375 GM in IV NORMAL SALINE 50ML 50 ML IV SCH ×5 (00:28→23:45)
[2020-11-09 03:00] VITALS: BP 117/67
--- NOTE | 2020-11-09 06:35 | PDOC ---
Infectious Disease Note Subjective Subjective Hungry this am Hands still hurt No F/c/S/N/V/d/SOA/rash ROS ROS o/w neg Vital Sign Vital Signs Vital Signs Date Time Temp Pulse Resp B/P (MAP) Pulse Ox O2 Delivery O2 Flow Rate FiO2 11/09/20 03:00 98.3 76 18 117/67 (84) 98 Room Air 98.3 Physical Exam PHYSICAL EXAM CONSTITUTIONAL: She is sitting on side of bed. She is cooperative. She is in no acute distress. HEENT: Pupils equal and reactive. Oral cavity, she has dentures. NECK: Supple. Good range of motion. LUNGS: Clear to auscultation bilaterally. HEART: S1, S2. ABDOMEN: Obese, soft, nontender, nondistended with positive bowel sounds. SKIN: Warm to touch without generalized signs of rash. In her lower lumbosacral area, she has multiple scabbed areas. No signs of any infection. No blisters or bullae. On her left hand on the dorsal aspect and the medial aspect, she has some drying blistered area and on the dorsal aspect of her fifth finger, she has dried blood, blister type on the right palm on the palmar side of the fifth finger. She has a callus-like lesion that had some blister-like material underneath it. NEUROLOGIC: She is nonfocal. Moves all extremities. Answered questions appropriately. Affect was appropriate. Labs Lab Laboratory Tests Test 11/08/20 14:01 Lactic Acid Level 1.1 mmol/L (0.4-2.0) Micro Microbiology 11/08/20 Blood Culture - Preliminary, Resulted NO GROWTH AFTER 1 DAY Objective Assessment Bilat hand wounds - states tetanus shot 3 years ago. Blood cult neg so far Lumbar scabbed area Substance abuse Tobacco abuse Obesity Plan Plan of Care Cont zosyn D/c Vanc Add po Zyvox 11/08 Monitor progress - if worsens consider antifungal - stable to some improvement today Needs OT F/u labs and cults local wound care D/w nursing TARA SHERMAN MD Nov 09, 2020 06:35
[2020-11-09 07:05] VITALS: BP 126/73
[2020-11-09] MEDS: LACTOBACILLUS RHAMNOSUS GG 1 CAPSULE. PO SCH ×2 (08:11→20:16)
[2020-11-09] MEDS: LINEZOLID 600 MG TABLET PO SCH ×2 (08:11→20:16)
--- NOTE | 2020-11-09 09:26 | PDOC ---
PROGRESS NOTES Date of Service: DATE: 11/09/20 TIME: 09:24 Chief Complaint Chief Complaint Bilateral hand wounds History of tobacco abuse Positive urine drug panel for marijuana and cocaine Plan Follow recommendations from infectious disease, orthopedic surgery recommendations greatly appreciated No further surgical intervention deemed necessary Antibiotic therapy as per ID financial planning consultant Local wound care management Pain management Hopefully discharge next 24 to 48 hours DVT prophylaxis with Lovenox History of Present Illness History of Present Illness History of Present Illness Patient is a 40-year-old female with no significant past medical history who is currently an every day smoker. She was in her usual state of health until approximately 2 weeks ago when apparently she fell on outstretched hand fortunately now she has no deformities but nevertheless she is scuffed her right palm and also she has a infected looking palmar lesion on her left hand as well. This apparently has gotten blisters for the last couple weeks. This happened approximately 14 days prior to her visit to our emergency department. Of note is that the patient's urine drug panel was positive for marijuana and cocaine. Patient adamantly denies using drugs on a regular basis and she tells me that a friend offered her a puff of a joint that she did in order to get some relief since she was in quite a bit of pain due to her lesions. She has been admitted to our service for further evaluation and treatment. At the time of my visit the patient was laying in bed sleeping comfortably nevertheless when I woke her up she seemed to be in acute distress nevertheless shortly after the conclusion of my assessment patient went right back to sleep. Plan of care has been explained in detail and all of her concerns were addressed to the best of my abilities 11/09: No acute events reported overnight, case discussed with nursing staff patient in no acute distress no complaints during my visit still with discomfort but says that now her lesions are draining purulent material reassurance provided Vitals Vitals Vital Signs Date Time Temp Pulse Resp B/P (MAP) Pulse Ox O2 Delivery O2 Flow Rate FiO2 11/09/20 07:30 Room Air 11/09/20 07:05 98.4 77 18 126/73 (90) 96 98.4 Physical Exam Physical Exam CONSTITUTIONAL: She is sitting on side of bed. She is cooperative. She is in no acute distress. HEENT: Pupils equal and reactive. Oral cavity, she has dentures. NECK: Supple. Good range of motion. LUNGS: Clear to auscultation bilaterally. HEART: S1, S2. ABDOMEN: Obese, soft, nontender, nondistended with positive bowel sounds. SKIN: Warm to touch without generalized signs of rash. In her lower lumbosacral area, she has multiple scabbed areas. No signs of any infection. No blisters or bullae. On her left hand on the dorsal aspect and the medial aspect, she has some drying blistered area and on the dorsal aspect of her fifth finger, she has dried blood, blister type on the right palm on the palmar side of the fifth finger. She has a callus-like lesion that had some blister-like material underneath it. NEUROLOGIC: She is nonfocal. Moves all extremities. Answered questions appropriately. Affect was appropriate. General: Alert, Cooperative Heart: Regular rate, Normal S1, Normal S2 Lungs: Clear Abdomen: Soft Extremities: No clubbing, No cyanosis, Other (The left hand has a large area of dorsal hand abrasion and superficial eschar. There is a resolving area of blisters/bullae, with some underlying fluid, but no active infection. This likely would respond with limited debridement at the bedside by wound care and superficial skin care only. There does not seem to be any deep tendon bone joint or tissue involvement. On the right hand there is a callus and more of a punctate type lesion at the palmar aspect of the small finger metacarpophalangeal joint. There is no apparent septic joint or joint involvement. There is no flexor tenosynovitis. This appears to be superficial, somewhat dark in color and looks like it is already spontaneously drained. I do not palpate any focal abscess or fluid cavity to incise.) Labs LABS Laboratory Tests Test 11/08/20 14:01 Lactic Acid Level 1.1 mmol/L (0.4-2.0) Review of Systems Review of Systems Review of systems pertinent as per HPI otherwise 14 point review of system is negative Assessment and Plan Assessmemt and Plan Problems Medical Problems: (1) Cocaine abuse Status: Acute (2) Marijuana abuse Status: Acute (3) Wound infection Status: Acute Comment Review of Relevant I have reviewed the following items ines (where applicable) has been applied. Labs Laboratory Tests Test 11/07/20 21:46 11/07/20 23:23 11/08/20 14:01 White Blood Count 10.5 x10^3/uL (4.0-11.0) Red Blood Count 4.34 x10^6/uL (3.50-5.40) Hemoglobin 12.2 g/dL (12.0-15.5) Hematocrit 37.8 % (36.0-47.0) Mean Corpuscular Volume 87 fL (79-100) Mean Corpuscular Hemoglobin 28 pg (25-35) Mean Corpuscular Hemoglobin Concent 32 g/dL (31-37) Red Cell Distribution Width 16.0 % (11.5-14.5) Platelet Count 319 x10^3/uL (140-400) Neutrophils (%) (Auto) 71 % (31-73) Lymphocytes (%) (Auto) 22 % (24-48) Monocytes (%) (Auto) 5 % (0-9) Eosinophils (%) (Auto) 2 % (0-3) Basophils (%) (Auto) 1 % (0-3) Neutrophils # (Auto) 7.4 x10^3/uL (1.8-7.7) Lymphocytes # (Auto) 2.3 x10^3/uL (1.0-4.8) Monocytes # (Auto) 0.5 x10^3/uL (0.0-1.1) Eosinophils # (Auto) 0.2 x10^3/uL (0.0-0.7) Basophils # (Auto) 0.1 x10^3/uL (0.0-0.2) Sodium Level 133 mmol/L (136-145) Potassium Level 4.0 mmol/L (3.5-5.1) Chloride Level 103 mmol/L (98-107) Carbon Dioxide Level 22 mmol/L (21-32) Anion Gap 8 (6-14) Blood Urea Nitrogen 8 mg/dL (7-20) Creatinine 0.7 mg/dL (0.6-1.0) Estimated GFR (Cockcroft-Gault) 91.8 BUN/Creatinine Ratio 11 (6-20) Glucose Level 122 mg/dL (70-99) Calcium Level 9.0 mg/dL (8.5-10.1) Total Bilirubin 0.1 mg/dL (0.2-1.0) Aspartate Amino Transf (AST/SGOT) 14 U/L (15-37) Alanine Aminotransferase (ALT/SGPT) 24 U/L (14-59) Alkaline Phosphatase 66 U/L (46-116) Total Protein 7.8 g/dL (6.4-8.2) Albumin 2.7 g/dL (3.4-5.0) Albumin/Globulin Ratio 0.5 (1.0-1.7) Urine Opiates Screen Neg (NEG) Urine Methadone Screen Neg (NEG) Urine Barbiturates Neg (NEG) Urine Phencyclidine Screen Neg (NEG) Urine Amphetamine/Methamphetamine Neg (NEG) Urine Benzodiazepines Screen Neg (NEG) Urine Cocaine Screen Pos (NEG) Urine Cannabinoids Screen Pos (NEG) Urine Ethyl Alcohol Neg (NEG) Lactic Acid Level 1.1 mmol/L (0.4-2.0) Laboratory Tests Test 11/08/20 14:01 Lactic Acid Level 1.1 mmol/L (0.4-2.0) Microbiology 11/08/20 Blood Culture - Preliminary, Resulted NO GROWTH AFTER 1 DAY Medications Current Medications Lidocaine HCl (Lidocaine 1% 20ml Vial) 20 ml 1X ONCE INJ Last administered on 11/07/20at 23:49; Start 11/07/20 at 21:45; Stop 11/07/20 at 21:46; Status DC Acetaminophen/ Hydrocodone Bitart (Lortab 5/325) 1 tab 1X ONCE PO Last administered on 11/07/20at 21:47; Start 11/07/20 at 21:45; Stop 11/07/20 at 21:46; Status DC Ondansetron HCl (Zofran) 4 mg PRN Q8HRS PRN IV NAUSEA/VOMITING; Start 11/08/20 at 00:15; Stop 11/09/20 at 00:14; Status DC Fentanyl Citrate (Fentanyl 2ml Vial) 50 mcg PRN Q2HR PRN IV PAIN Last administered on 11/08/20at 08:10; Start 11/08/20 at 00:15; Stop 11/09/20 at 00:14; Status DC Vancomycin HCl (Vanco Per Pharmacy) 1 each PRN DAILY PRN MC SEE COMMENTS Last administered on 11/08/20at 02:10; Start 11/08/20 at 00:15; Stop 11/08/20 at 08:00; Status DC Piperacillin Sod/ Tazobactam Sod 3.375 gm/Sodium Chloride 50 ml @ 100 mls/hr 1X ONCE IV Last administered on 11/08/20at 00:15; Start 11/08/20 at 00:15; Stop 11/08/20 at 00:44; Status DC Sodium Chloride 1,000 ml @ 1,000 mls/hr 1X ONCE IV Last administered on 11/08/20at 00:37; Start 11/08/20 at 00:15; Stop 11/08/20 at 01:14; Status DC Vancomycin HCl 2 gm/Sodium Chloride 500 ml @ 250 mls/hr 1X ONCE IV Last administered on 11/08/20at 02:30; Start 11/08/20 at 00:30; Stop 11/08/20 at 02:29; Status DC Vancomycin HCl 1.25 gm/Sodium Chloride 250 ml @ 167 mls/hr Q8H IV ; Start 11/08/20 at 09:30; Stop 11/08/20 at 08:00; Status DC Vancomycin HCl (Vancomycin Trough Level) 1 each 1X ONCE MC ; Start 11/09/20 at 01:00; Stop 11/09/20 at 01:01; Status Cancel Linezolid (Zyvox) 600 mg BID PO Last administered on 11/09/20at 08:11; Start 11/08/20 at 09:00 Piperacillin Sod/ Tazobactam Sod 3.375 gm/Sodium Chloride 50 ml @ 100 mls/hr Q6HRS IV Last administered on 11/09/20at 06:04; Start 11/08/20 at 12:00 Lactobacillus Rhamnosus (Culturelle) 1 cap BID PO Last administered on 11/09/20at 08:11; Start 11/08/20 at 21:00 Oxycodone/ Acetaminophen (Percocet 5/325) 1 tab PRN Q4HRS PRN PO PAIN MILD TO MOD; Start 11/08/20 at 16:45 Oxycodone/ Acetaminophen (Percocet 5/325) 2 tab PRN Q4HRS PRN PO PAIN SEVERE Last administered on 11/08/20at 21:36; Start 11/08/20 at 16:45 Active Scripts Active Vitals/I & O Vital Sign - Last 24 Hours 11/08/20 11/08/20 11/08/20 11/08/20 10:36 10:36 14:32 19:00 Temp 98.9 98.0 98.8 98.9 98.0 98.8 Pulse 80 78 75 Resp 18 18 18 B/P (MAP) 129/67 (87) 120/83 (95) 124/72 (89) Pulse Ox 99 97 95 O2 Delivery Room Air Room Air Room Air 11/08/20 11/08/20 11/08/20 11/08/20 20:00 21:36 22:36 23:53 Resp 18 18 B/P (MAP) Pulse Ox 95 95 O2 Delivery Room Air Room Air Room Air 11/09/20 11/09/20 11/09/20 03:00 07:05 07:30 Temp 98.3 98.4 98.3 98.4 Pulse 76 77 Resp 18 18 B/P (MAP) 117/67 (84) 126/73 (90) Pulse Ox 98 96 O2 Delivery Room Air Room Air Room Air Intake and Output 11/08/20 11/08/20 11/09/20 15:00 23:00 07:00 Intake Total 0 ml 0 ml Balance 0 ml 0 ml Justicifation of Admission Dx: Justifications for Admission: Justification of Admission Dx: Yes Cellulitis: Cellulitis CARMEN HONEYCUTT MD Nov 09, 2020 09:25
[2020-11-09 11:00] VITALS: BP 121/56
[2020-11-09] MEDS: oxyCODONE/APAP 5/325 1 TAB TABLET PO PRN ×2 (11:27→17:59)
[2020-11-09 14:31] VITALS: BP 146/56
[2020-11-09 19:18] VITALS: BP 110/67
[2020-11-09 22:25] VITALS: BP 139/99
[2020-11-10 02:33] VITALS: BP 92/32
[2020-11-10] MEDS: PIPERACILLIN/TAZOBACTAM 3.375 GM in IV NORMAL SALINE 50ML 50 ML IV SCH ×4 (05:32→23:37)
[2020-11-10 07:00] VITALS: BP 113/63
--- NOTE | 2020-11-10 08:11 | PDOC ---
Infectious Disease Note Subjective: Subjective Complains of hands still hurting Denies fever, nausea, vomiting, shortness of breath, diarrhea, abdominal pain, rash Otherwise as above Vital Signs: Vital Signs Vital Signs Date Time Temp Pulse Resp B/P (MAP) Pulse Ox O2 Delivery O2 Flow Rate FiO2 11/10/20 07:00 98.9 79 16 113/63 (80) 100 Room Air 98.9 Physical Exam: PHYSICAL EXAM GENL: Alert awake in no acute distress. HEENT: Pupils equal and reactive. Oral cavity, she has dentures. NECK: Supple. Good range of motion. LUNGS: Clear to auscultation bilaterally. HEART: S1, S2. ABDOMEN: Obese, soft, nontender, nondistended with positive bowel sounds. EXT Left hand dorsum has a large area of abrasion and superficial eschar. Some area of blisters/bullae, no fluctuance. Does not seem to have any joint or deep tissue involvement at this time. Right hand there is a callus on the palmar aspect and more of a punctate type lesion at the palmar aspect of the fifth metacarpophalangeal joint. No fluctuance ,appears to be superficial, dry no purulence or other drainage noted, no septic joint noted at right fifth metacarpophalangeal joint or wrist joint NEUROLOGIC: Alert oriented x3, grossly nonfocal Psych cooperative Medications: Inpatient Meds: Current Medications Medications (Trade) Dose Ordered Sig/Guerline Start Time Stop Time Status Last Admin Dose Admin Acetaminophen/ Hydrocodone Bitart (Lortab 5/325) 1 tab 1X ONCE 11/07/20 21:45 11/07/20 21:46 DC 11/07/20 21:47 1 TAB Fentanyl Citrate (Fentanyl 2ml Vial) 50 mcg PRN Q2HR PRN 11/08/20 00:15 11/09/20 00:14 DC 11/08/20 08:10 50 MCG Lactobacillus Rhamnosus (Culturelle) 1 cap BID 11/08/20 21:00 11/09/20 20:16 1 CAP Lidocaine HCl (Lidocaine 1% 20ml Vial) 20 ml 1X ONCE 11/07/20 21:45 11/07/20 21:46 DC 11/07/20 23:49 20 ML Linezolid (Zyvox) 600 mg BID 11/08/20 09:00 11/09/20 20:16 600 MG Ondansetron HCl (Zofran) 4 mg PRN Q8HRS PRN 11/08/20 00:15 11/09/20 00:14 DC Oxycodone/ Acetaminophen (Percocet 5/325) 2 tab PRN Q4HRS PRN 11/08/20 16:45 11/09/20 17:59 2 TAB Piperacillin Sod/ Tazobactam Sod 3.375 gm/Sodium Chloride 50 ml @ 100 mls/hr Q6HRS 11/08/20 12:00 11/10/20 05:32 100 MLS/HR Sodium Chloride 1,000 ml @ 1,000 mls/hr 1X ONCE 11/08/20 00:15 11/08/20 01:14 DC 11/08/20 00:37 1,000 MLS/HR Vancomycin HCl (Vanco Per Pharmacy) 1 each PRN DAILY PRN 11/08/20 00:15 11/08/20 08:00 DC 11/08/20 02:10 1 EACH Vancomycin HCl (Vancomycin Trough Level) 1 each 1X ONCE 11/09/20 01:00 11/09/20 01:01 Cancel Vancomycin HCl 1.25 gm/Sodium Chloride 250 ml @ 167 mls/hr Q8H 11/08/20 09:30 11/08/20 08:00 DC Vancomycin HCl 2 gm/Sodium Chloride 500 ml @ 250 mls/hr 1X ONCE 11/08/20 00:30 11/08/20 02:29 DC 11/08/20 02:30 250 MLS/HR Objective: Assessment: Bilateral hand wounds Lt worse than Rt hand , Ortho has evaluated patient Lumbar scabbed area Substance abuse Tobacco abuse Obesity s/p tetanus immunization 3 years ago Plan: Plan of Care Cont zosyn/ Zyvox F/u labs and cults local wound care D/w nursing LAUREN GANDHI MD Nov 10, 2020 08:11
[2020-11-10] MEDS: LACTOBACILLUS RHAMNOSUS GG 1 CAPSULE. PO SCH ×2 (08:15→20:54)
[2020-11-10] MEDS: LINEZOLID 600 MG TABLET PO SCH ×2 (08:15→20:54)
[2020-11-10] MEDS: oxyCODONE/APAP 5/325 1 TAB TABLET PO PRN ×3 (08:16→20:53)
--- NOTE | 2020-11-10 10:46 | NUR ---
SW following. Discussed with RN, pt from home, room air, cardiac diet. Pt positive for cocaine and marijuana - KRAIG consulted. Pt currently on zyvox and zosyn. 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 ROBBIE will continue to follow. Addendum: 11/10/20 at 1300 by MARIAJOSE AVALOS Redd (KRAIG) met with pt, pt did state she had marijuana 2 weeks ago, but does not use cocaine and wondered if it may have been mixed in the marijuana. Pt denied any need for assistance. Was provided with information RE [facility] and [facility]. ROBBIE will continue to follow.
[2020-11-10 11:00] VITALS: BP 105/63
[2020-11-10 12:08] LABS: CALCIUM 8.7 mg/dL (8.5-10.1); CREATININE 0.8 mg/dL (0.6-1.0); GFR 78.7; MAGNESIUM 2.3 mg/dL (1.8-2.4); POTASSIUM 4.5 mmol/L (3.5-5.1)
--- NOTE | 2020-11-10 13:00 | NUR ---
Wound Care Wound Type/Assessment: patient seen per wound care consult. see wound assessment. patient stated she fell on concrete and developed the wound on the left hand this wound has a dry scab with a blister that has some yellow fluid under, no drainage noted at this time, Betadine applied and left MARIKA. patient also has an unknown wound to the right hand this wound is a dry scaly area with no drainage noted, Betadine applied at this time. patient has 8 small scabs to the left buttock, Betadine applied to this area. Treatment Recommendations/Plan: Recommendations of applying Betadine to the wound on the left and right hand and the left buttock, apply daily. Discharge Recommendations for dressings: Recommendations of continuing withe the POC and wound care will continue to f/u for changes. Notified NYASIA Lockwood about the POC
--- NOTE | 2020-11-10 14:25 | PDOC ---
[facility] PROGRESS NOTE Date of Service DOS: DATE: 11/10/20 TIME: 14:17 Chief Complaint Chief Complaint Bilateral hand wounds History of tobacco abuse Positive urine drug panel for marijuana and cocaine Plan Follow recommendations from infectious disease, orthopedic surgery recommendations greatly appreciated No further surgical intervention deemed necessary Antibiotic therapy as per ID bridal stylist sales consultant Local wound care management Pain management Hopefully discharge next 24 to 48 hours DVT prophylaxis with Lovenox History of Present Illness History of Present Illness History of Present Illness Patient is a 40-year-old female with no significant past medical history who is currently an every day smoker. She was in her usual state of health until approximately 2 weeks ago when apparently she fell on outstretched hand fortunately now she has no deformities but nevertheless she is scuffed her right palm and also she has a infected looking palmar lesion on her left hand as well. This apparently has gotten blisters for the last couple weeks. This happened approximately 14 days prior to her visit to our emergency department. Of note is that the patient's urine drug panel was positive for marijuana and cocaine. Patient adamantly denies using drugs on a regular basis and she tells me that a friend offered her a puff of a joint that she did in order to get some relief since she was in quite a bit of pain due to her lesions. She has been admitted to our service for further evaluation and treatment. At the time of my visit the patient was laying in bed sleeping comfortably nevertheless when I woke her up she seemed to be in acute distress nevertheless shortly after the conclusion of my assessment patient went right back to sleep. Plan of care has been explained in detail and all of her concerns were addressed to the best of my abilities 11/09: No acute events reported overnight, case discussed with nursing staff patient in no acute distress no complaints during my visit still with discomfort but says that now her lesions are draining purulent material reassurance provided 11/10/20 No acute events overnight. Patient's pain is controlled. Wound in bilateral hands look stable. Continue with empiric IV antibiotics per ID. Patient's chart, labs, images were reviewed and discussed with RN Vitals/I&O Vitals/I&O: Vital Signs Date Time Temp Pulse Resp B/P (MAP) Pulse Ox O2 Delivery O2 Flow Rate FiO2 11/10/20 13:47 Room Air 11/10/20 11:00 98.3 67 18 105/63 (77) 97 98.3 I & O 11/09/20 11/09/20 11/10/20 15:00 23:00 07:00 Intake Total 240 ml 0 ml Balance 240 ml 0 ml Physical Exam Physical Exam: GENL: Alert awake in no acute distress. HEENT: Pupils equal and reactive. Oral cavity, she has dentures. NECK: Supple. Good range of motion. LUNGS: Clear to auscultation bilaterally. HEART: S1, S2. ABDOMEN: Obese, soft, nontender, nondistended with positive bowel sounds. EXT Left hand dorsum has a large area of abrasion and superficial eschar. Some area of blisters/bullae, no fluctuance. Does not seem to have any joint or deep tissue involvement at this time. Right hand there is a callus on the palmar aspect and more of a punctate type lesion at the palmar aspect of the fifth metacarpophalangeal joint. No fluctuance ,appears to be superficial, dry no purulence or other drainage noted, no septic joint noted at right fifth metacarpophalangeal joint or wrist joint NEUROLOGIC: Alert oriented x3, grossly nonfocal Psych cooperative General: Alert, Cooperative Heart: Regular rate, Normal S1, Normal S2 Lungs: Clear Abdomen: Soft Extremities: No clubbing, No cyanosis, Other Labs Labs: Laboratory Tests Test 11/10/20 11:17 Sodium Level 138 mmol/L (136-145) Potassium Level 4.5 mmol/L (3.5-5.1) Chloride Level 104 mmol/L (98-107) Carbon Dioxide Level 25 mmol/L (21-32) Anion Gap 9 (6-14) Blood Urea Nitrogen 10 mg/dL (7-20) Creatinine 0.8 mg/dL (0.6-1.0) Estimated GFR (Cockcroft-Gault) 78.7 Glucose Level 86 mg/dL (70-99) Calcium Level 8.7 mg/dL (8.5-10.1) Magnesium Level 2.3 mg/dL (1.8-2.4) Assessment and Plan Assessmemt and Plan Problems Medical Problems: (1) Cocaine abuse Status: Acute (2) Marijuana abuse Status: Acute (3) Wound infection Status: Acute Comment Review of Relevant I have reviewed the following items ines (where applicable) has been applied. Justifications for Admission Other Justification TON HALL MD Nov 10, 2020 14:25
[2020-11-10 15:00] VITALS: BP 138/54
[2020-11-10 19:00] VITALS: BP 145/64
[2020-11-10 22:48] VITALS: BP 131/83
[2020-11-11] VITALS (7 sets, daily range): BP systolic 105–133; BP diastolic 49–73
[2020-11-11] MEDS: oxyCODONE/APAP 5/325 1 TAB TABLET PO PRN ×4 (05:09→19:40)
[2020-11-11] MEDS: PIPERACILLIN/TAZOBACTAM 3.375 GM in IV NORMAL SALINE 50ML 50 ML IV SCH ×3 (05:09→18:00)
[2020-11-11] MEDS: LINEZOLID 600 MG TABLET PO SCH ×2 (08:09→19:38)
[2020-11-11] MEDS: LACTOBACILLUS RHAMNOSUS GG 1 CAPSULE. PO SCH ×2 (08:09→19:38)
--- NOTE | 2020-11-11 11:06 | PDOC ---
Infectious Disease Note Subjective: Subjective Complains of hands still hurting Denies fever, nausea, vomiting, shortness of breath, diarrhea, abdominal pain, rash Otherwise as above Vital Signs: Vital Signs Vital Signs Date Time Temp Pulse Resp B/P (MAP) Pulse Ox O2 Delivery O2 Flow Rate FiO2 11/11/20 09:46 Room Air 11/11/20 07:00 98.8 60 16 107/60 (76) 97 98.8 Physical Exam: PHYSICAL EXAM GENL: Alert awake in no acute distress. HEENT: Pupils equal and reactive. Oral cavity, she has dentures. NECK: Supple. Good range of motion. LUNGS: Clear to auscultation bilaterally. HEART: S1, S2. ABDOMEN: Obese, soft, nontender, nondistended with positive bowel sounds. EXT Left hand dorsum has a large area of abrasion and superficial eschar. Some area of blisters/bullae, no fluctuance. Does not seem to have any joint or deep tissue involvement at this time. Right hand there is a callus on the palmar aspect and more of a punctate type lesion at the palmar aspect of the fifth metacarpophalangeal joint. No fluctuance ,appears to be superficial, dry no purulence or other drainage noted, no septic joint noted at right fifth metacarpophalangeal joint or wrist joint NEUROLOGIC: Alert oriented x3, grossly nonfocal Psych cooperative Medications: Inpatient Meds: Current Medications Medications (Trade) Dose Ordered Sig/Guerline Start Time Stop Time Status Last Admin Dose Admin Acetaminophen/ Hydrocodone Bitart (Lortab 5/325) 1 tab 1X ONCE 11/07/20 21:45 11/07/20 21:46 DC 11/07/20 21:47 1 TAB Fentanyl Citrate (Fentanyl 2ml Vial) 50 mcg PRN Q2HR PRN 11/08/20 00:15 11/09/20 00:14 DC 11/08/20 08:10 50 MCG Lactobacillus Rhamnosus (Culturelle) 1 cap BID 11/08/20 21:00 11/11/20 08:09 1 CAP Lidocaine HCl (Lidocaine 1% 20ml Vial) 20 ml 1X ONCE 11/07/20 21:45 11/07/20 21:46 DC 11/07/20 23:49 20 ML Linezolid (Zyvox) 600 mg BID 11/08/20 09:00 11/11/20 08:09 600 MG Ondansetron HCl (Zofran) 4 mg PRN Q8HRS PRN 11/08/20 00:15 11/09/20 00:14 DC Oxycodone/ Acetaminophen (Percocet 5/325) 2 tab PRN Q4HRS PRN 11/08/20 16:45 11/11/20 09:46 2 TAB Piperacillin Sod/ Tazobactam Sod 3.375 gm/Sodium Chloride 50 ml @ 100 mls/hr Q6HRS 11/08/20 12:00 11/11/20 05:09 100 MLS/HR Sodium Chloride 1,000 ml @ 1,000 mls/hr 1X ONCE 11/08/20 00:15 11/08/20 01:14 DC 11/08/20 00:37 1,000 MLS/HR Vancomycin HCl (Vanco Per Pharmacy) 1 each PRN DAILY PRN 11/08/20 00:15 11/08/20 08:00 DC 11/08/20 02:10 1 EACH Vancomycin HCl (Vancomycin Trough Level) 1 each 1X ONCE 11/09/20 01:00 11/09/20 01:01 Cancel Vancomycin HCl 1.25 gm/Sodium Chloride 250 ml @ 167 mls/hr Q8H 11/08/20 09:30 11/08/20 08:00 DC Vancomycin HCl 2 gm/Sodium Chloride 500 ml @ 250 mls/hr 1X ONCE 11/08/20 00:30 11/08/20 02:29 DC 11/08/20 02:30 250 MLS/HR Labs: Lab Laboratory Tests Test 11/10/20 11:17 Sodium Level 138 mmol/L (136-145) Potassium Level 4.5 mmol/L (3.5-5.1) Chloride Level 104 mmol/L (98-107) Carbon Dioxide Level 25 mmol/L (21-32) Anion Gap 9 (6-14) Blood Urea Nitrogen 10 mg/dL (7-20) Creatinine 0.8 mg/dL (0.6-1.0) Estimated GFR (Cockcroft-Gault) 78.7 Glucose Level 86 mg/dL (70-99) Calcium Level 8.7 mg/dL (8.5-10.1) Magnesium Level 2.3 mg/dL (1.8-2.4) Objective: Assessment: Bilateral hand wounds Lt worse than Rt hand , Ortho has evaluated patient Lumbar scabbed area Substance abuse Tobacco abuse Obesity s/p tetanus immunization 3 years ago Plan: Plan of Care DC Zosyn Cont zyvox hopefully dc home tomorrow F/u labs and cults local wound care D/w nursing LAUREN GANDHI MD Nov 11, 2020 11:06
--- NOTE | 2020-11-11 12:58 | NUR ---
SW following. Discussed with RN, pt from home, room air, zosyn stopped. RN anticipates possible discharge home tomorrow (11/12/20). Pt cleared by PAT team. SW will continue to follow.
--- NOTE | 2020-11-11 14:30 | PDOC ---
[facility] PROGRESS NOTE Date of Service DOS: DATE: 11/11/20 TIME: 14:27 Chief Complaint Chief Complaint Bilateral hand wounds History of tobacco abuse Positive urine drug panel for marijuana and cocaine Plan Follow recommendations from infectious disease, orthopedic surgery recommendations greatly appreciated No further surgical intervention deemed necessary Antibiotic therapy as per ID senior internet sales consultant Local wound care management Pain management Hopefully discharge next 24 to 48 hours DVT prophylaxis with Lovenox History of Present Illness History of Present Illness History of Present Illness Patient is a 40-year-old female with no significant past medical history who is currently an every day smoker. She was in her usual state of health until approximately 2 weeks ago when apparently she fell on outstretched hand fortunately now she has no deformities but nevertheless she is scuffed her right palm and also she has a infected looking palmar lesion on her left hand as well. This apparently has gotten blisters for the last couple weeks. This happened approximately 14 days prior to her visit to our emergency department. Of note is that the patient's urine drug panel was positive for marijuana and cocaine. Patient adamantly denies using drugs on a regular basis and she tells me that a friend offered her a puff of a joint that she did in order to get some relief since she was in quite a bit of pain due to her lesions. She has been admitted to our service for further evaluation and treatment. At the time of my visit the patient was laying in bed sleeping comfortably nevertheless when I woke her up she seemed to be in acute distress nevertheless shortly after the conclusion of my assessment patient went right back to sleep. Plan of care has been explained in detail and all of her concerns were addressed to the best of my abilities 11/09: No acute events reported overnight, case discussed with nursing staff patient in no acute distress no complaints during my visit still with discomfort but says that now her lesions are draining purulent material reassurance provided 11/10/20 No acute events overnight. Patient's pain is controlled. Wound in bilateral hands look stable. Continue with empiric IV antibiotics per ID. Patient's chart, labs, images were reviewed and discussed with RN 11/11/2020 No acute events overnight. Patient continues complain of pain in her left pinky. Wound care has been seeing for her wounds and they are adequately dressing it with some drainage clear from the left hand. Anticipate discharge in the next 24 hours. Zosyn was discontinued we will continue with the linezolid. Will follow up with ID for antibiotic course. Patient's chart, labs, images were reviewed and discussed with RN Vitals/I&O Vitals/I&O: Vital Signs Date Time Temp Pulse Resp B/P (MAP) Pulse Ox O2 Delivery O2 Flow Rate FiO2 11/11/20 11:00 98.4 72 18 133/73 (93) 97 Room Air 98.4 Physical Exam Physical Exam: GENL: Alert awake in no acute distress. HEENT: Pupils equal and reactive. Oral cavity, she has dentures. NECK: Supple. Good range of motion. LUNGS: Clear to auscultation bilaterally. HEART: S1, S2. ABDOMEN: Obese, soft, nontender, nondistended with positive bowel sounds. EXT Left hand dorsum has a large area of abrasion and superficial eschar. Some area of blisters/bullae, no fluctuance. Does not seem to have any joint or deep tissue involvement at this time. Right hand there is a callus on the palmar aspect and more of a punctate type lesion at the palmar aspect of the fifth metacarpophalangeal joint. No fluctuance ,appears to be superficial, dry no purulence or other drainage noted, no septic joint noted at right fifth metacarpophalangeal joint or wrist joint NEUROLOGIC: Alert oriented x3, grossly nonfocal Psych cooperative General: Alert, Cooperative Heart: Regular rate, Normal S1, Normal S2 Lungs: Clear Abdomen: Soft Extremities: No clubbing, No cyanosis, Other Assessment and Plan Assessmemt and Plan Problems Medical Problems: (1) Cocaine abuse Status: Acute (2) Marijuana abuse Status: Acute (3) Wound infection Status: Acute Comment Review of Relevant I have reviewed the following items ines (where applicable) has been applied. Justifications for Admission Other Justification TON HALL MD Nov 11, 2020 14:30
[2020-11-12] MEDS: PIPERACILLIN/TAZOBACTAM 3.375 GM in IV NORMAL SALINE 50ML 50 ML IV SCH ×3 (00:26→12:00)
[2020-11-12 02:57] VITALS: BP 127/59
[2020-11-12 07:00] VITALS: BP 122/57
[2020-11-12] MEDS: LACTOBACILLUS RHAMNOSUS GG 1 CAPSULE. PO SCH (08:30)
[2020-11-12] MEDS: LINEZOLID 600 MG TABLET PO SCH (08:30)
[2020-11-12] MEDS: oxyCODONE/APAP 5/325 1 TAB TABLET PO PRN (08:31)
--- NOTE | 2020-11-12 08:43 | PDOC ---
Infectious Disease Note Subjective: Subjective Patient feels better Denies fever, nausea, vomiting, shortness of breath, diarrhea, abdominal pain, rash Otherwise as above Vital Signs: Vital Signs Vital Signs Date Time Temp Pulse Resp B/P (MAP) Pulse Ox O2 Delivery O2 Flow Rate FiO2 11/12/20 08:31 Room Air 11/12/20 07:00 98.5 66 18 122/57 (78) 93 98.5 Physical Exam: PHYSICAL EXAM GENL: Alert awake in no acute distress. HEENT: Pupils equal and reactive. Oral cavity, she has dentures. NECK: Supple. Good range of motion. LUNGS: Clear to auscultation bilaterally. HEART: S1, S2. ABDOMEN: Obese, soft, nontender, nondistended with positive bowel sounds. EXT Left hand dorsum has a large area of abrasion and superficial eschar. Some area of blisters/bullae, no fluctuance. Does not seem to have any joint or deep tissue involvement at this time. Right hand there is a callus on the palmar aspect and more of a punctate type lesion at the palmar aspect of the fifth metacarpophalangeal joint. No fluctuance ,appears to be superficial, dry no purulence or other drainage noted, no septic joint noted at right fifth metacarpophalangeal joint or wrist joint NEUROLOGIC: Alert oriented x3, grossly nonfocal Psych cooperative Medications: Inpatient Meds: Current Medications Medications (Trade) Dose Ordered Sig/Guerline Start Time Stop Time Status Last Admin Dose Admin Acetaminophen/ Hydrocodone Bitart (Lortab 5/325) 1 tab 1X ONCE 11/07/20 21:45 11/07/20 21:46 DC 11/07/20 21:47 1 TAB Fentanyl Citrate (Fentanyl 2ml Vial) 50 mcg PRN Q2HR PRN 11/08/20 00:15 11/09/20 00:14 DC 11/08/20 08:10 50 MCG Lactobacillus Rhamnosus (Culturelle) 1 cap BID 11/08/20 21:00 11/12/20 08:30 1 CAP Lidocaine HCl (Lidocaine 1% 20ml Vial) 20 ml 1X ONCE 11/07/20 21:45 11/07/20 21:46 DC 11/07/20 23:49 20 ML Linezolid (Zyvox) 600 mg BID 11/08/20 09:00 11/12/20 08:30 600 MG Ondansetron HCl (Zofran) 4 mg PRN Q8HRS PRN 11/08/20 00:15 11/09/20 00:14 DC Oxycodone/ Acetaminophen (Percocet 5/325) 2 tab PRN Q4HRS PRN 11/08/20 16:45 11/12/20 08:31 2 TAB Piperacillin Sod/ Tazobactam Sod 3.375 gm/Sodium Chloride 50 ml @ 100 mls/hr Q6HRS 11/08/20 12:00 11/12/20 05:15 100 MLS/HR Sodium Chloride 1,000 ml @ 1,000 mls/hr 1X ONCE 11/08/20 00:15 11/08/20 01:14 DC 11/08/20 00:37 1,000 MLS/HR Vancomycin HCl (Vanco Per Pharmacy) 1 each PRN DAILY PRN 11/08/20 00:15 11/08/20 08:00 DC 11/08/20 02:10 1 EACH Vancomycin HCl (Vancomycin Trough Level) 1 each 1X ONCE 11/09/20 01:00 11/09/20 01:01 Cancel Vancomycin HCl 1.25 gm/Sodium Chloride 250 ml @ 167 mls/hr Q8H 11/08/20 09:30 11/08/20 08:00 DC Vancomycin HCl 2 gm/Sodium Chloride 500 ml @ 250 mls/hr 1X ONCE 11/08/20 00:30 11/08/20 02:29 DC 11/08/20 02:30 250 MLS/HR Objective: Assessment: Bilateral hand wounds Lt worse than Rt hand , Ortho has evaluated patient Lumbar scabbed area Substance abuse Tobacco abuse Obesity s/p tetanus immunization 3 years ago Plan: Plan of Care Patient will be discharged home on p.o. Augmentin and doxycycline Prescription in chart Continue local wound care Quit illicit drugs Discussed with LAUREN QUIROZ MD Nov 12, 2020 08:43
--- NOTE | 2020-11-12 09:26 | NUR ---
SW following. Discussed with RN, pt from home, room air, cardiac diet. Pt being discharge home today with self care and oral abx. SW will continue to follow.
[2020-11-12 11:00] VITALS: BP 128/58
--- NOTE | 2020-11-12 11:04 | DISCH ---
DISCHARGE INSTRUCTIONS Condition on Discharge Condition on Discharge: Stable Activity After Discharge Activity Instructions for Disc: Activity as tolerated Driving Instructions after Dis: Do not drive today Weight Bearing Status after Di: As tolerated Diet after Discharge Diet after Discharge: Regular Contacting the DR. after DC Call your doctor for: If your condition worsens Follow-Up Follow up with: PCP within 2 weeks of discharge Follow Up With: Wound care clinic for your both hand wounds TON HALL MD Nov 12, 2020 11:04
--- NOTE | 2020-11-13 19:09 | PDOC3 ---
[facility]-Discharge Summary Date of Admission: Date of Admission: Nov 08, 2020 Date of Discharge: Date of Discharge: Nov 12, 2020 Discharge Diagnosis: Discharge Diagnosis: Bilateral hand wounds s/p superficial debridement and dressing changes with wound care History of tobacco abuse Positive urine drug panel for marijuana and cocaine Hospital Course: Hospital Course: rs for the last couple weeks. This happened approximately 14 days prior to her visit to our emergency department. Of note is that the patient's urine drug panel was positive for marijuana and cocaine. Patient adamantly denies using drugs on a regular basis and she tells me that a friend offered her a puff of a joint that she did in order to get some relief since she was in quite a bit of pain due to her lesions. She has been admitted to our service for further evaluation and treatment. At the time of my visit the patient was laying in bed sleeping comfortably nevertheless when I woke her up she seemed to be in acute distress nevertheless shortly after the conclusion of my assessment patient went right back to sleep. Plan of care has been explained in detail and all of her concerns were addressed to the best of my abilities 11/09: No acute events reported overnight, case discussed with nursing staff patient in no acute distress no complaints during my visit still with discomfort but says that now her lesions are draining purulent material reassurance provided 11/10/20 No acute events overnight. Patient's pain is controlled. Wound in bilateral hands look stable. Continue with empiric IV antibiotics per ID. Patient's chart, labs, images were reviewed and discussed with RN 11/11/2020 No acute events overnight. Patient continues complain of pain in her left pinky. Wound care has been seeing for her wounds and they are adequately dressing it with some drainage clear from the left hand. Anticipate discharge in the next 24 hours. Zosyn was discontinued we will continue with the linezolid. Will follow up with ID for antibiotic course. Patient's chart, labs, images were reviewed and discussed with RN Discharged with augmentin and Doxycycline. She will f/u with wound care. Rest of her hospital course was uneventful. Disposition: Disposition/Orders: D/C to Home Activity: Activity: Resume previous activity Diet: Diet: Consistent Carbohydrate Medications: Home Meds Discontinued Scripts Mupirocin (MUPIROCIN OINTMENT) 22 Gm Oint...g., 1 AUSTYN TP TID for WOUND CARE, #1 TUBE Prov:[employer]BER [employer] DELIVERY SPECIALIST 11/07/20 Sulfamethoxazole/Trimethoprim (BACTRIM DS TABLET) 1 Each Tablet, 1 TAB PO BID for 10 Days, #20 TAB 0 Refills Prov:HEBER [employer] IN HOME DELIVERY SPECIALIST 11/07/20 No Active Prescriptions or Reported Meds Total Time: Total Time: Total time spent was 35 minutes in preparing scripts, discharge planning with SW and RN, and preparing this discharge summary. Patient seen and examined on day of discharge. Justicifation of Admission Dx: Justifications for Admission: Justification of Admission Dx: Yes Cellulitis: Cellulitis TON HALL MD Nov 13, 2020 19:09
== END 2020-11-12 15:18 | disposition home or self-care (01) | DRG 607 ==
LOC: ER 21:31 → 4 NORTH 11-08 01:07
PROVIDERS: ADMIT Internal Medicine; ATTEND Internal Medicine
PROC: 0HBGXZZ Excision of Left Hand Skin, External Approach (ICD-10-PCS; principal; 2020-11-11)
DX: S60.522A Blister (nonthermal) of left hand, initial encounter (principal); Z68.41 Body mass index [BMI] 40.0-44.9, adult; F14.10 Cocaine abuse, uncomplicated; F17.210 Nicotine dependence, cigarettes, uncomplicated; F12.10 Cannabis abuse, uncomplicated; E66.9 Obesity, unspecified; W18.39XA Other fall on same level, initial encounter; Z98.51 Tubal ligation status; Z80.9 Family history of malignant neoplasm, unspecified; Z88.8 Allergy status to other drugs, medicaments and biological substances; Y93.89 Activity, other specified; Y92.89 Other specified places as the place of occurrence of the external cause; Y99.8 Other external cause status
CPT/HCPCS: 10060; 36415; 80048; 80053; 80307; 83605; 83735; 85025; 87040; 96374; 99285; J2543; J3010; J3370; J3490; J7030; J7040; 73130-50; G0378